=== PATIENT | female | born 1975 | race Caucasian/White ===

== ENCOUNTER 2019-04-09 17:04 | Emergency (ER) | payer OTHER, SELFPAY ==
[2019-04-09 17:10] VITALS: BP 117/83; PULSE 84; RESP 16; TEMP 36.8; O2SAT 100; BMI 22.7
--- NOTE | 2019-04-09 17:38 | DI.US.S_ITS ---
PROCEDURE: US PERIPH VENOUS LOW EXTREM RT INDICATIONS: CALF PAIN TECHNIQUE: Real-time imaging, as well as color and pulse Doppler interrogation, were performed of the lower extremity deep veins from the inguinal ligament to the popliteal fossa. COMPARISON: None. FINDINGS: The common femoral, femoral and popliteal veins are normally compressible, and free of intraluminal thrombus. Color and pulse Doppler demonstrate normal phasic intraluminal flow. There is normal augmentation response to distal compression maneuver. IMPRESSION: No DVT found. Dictated by: Basilio Rocha M.D. on 04/09/2019 at 19:10 Approved by: Basilio Rocha M.D. on 04/09/2019 at 19:11
--- NOTE | 2019-04-09 17:40 | ED.LOWEXIN ---
HPI - Extremity Injury (Lower) <SHANTELLE Nagel - Last Filed: 04/09/19 20:09> General Chief Complaint: Extremity Injury, Lower Stated Complaint: thinks she has a blood clot in her right leg Time Seen by Provider: 04/09/19 17:17 Source: patient Mode of arrival: Ambulatory Limitations: no limitations History of Present Illness HPI Narrative: 43-year-old female presents emergency department today complaining of a dull aching 2/10 right calf pain for the past 2 days. She states she recently had a long car trip and then the pain started to develop. She states it is worse when she walks, when she palpates her calf, when she flexes her foot. She has a history of varicose veins. No history of DVTs, is not currently taking any blood thinners. She denies any shortness of breath, chest pain, nausea, vomiting, diarrhea, fevers, or chills. Review of Systems <SHANTELLE Nagel - Last Filed: 04/09/19 20:09> Review of Systems Narrative: REVIEW OF SYSTEMS: GENERAL: Denies fever or chills. HENT: No head trauma, hearing loss or sore throat. EYES: No loss of vision, double vision, eye pain, or irritation. CARDIOVASCULAR: No chest pain or syncope. RESPIRATORY: No shortness of breath or cough. GASTROINTESTINAL: No nausea, vomiting, diarrhea, or constipation. GENITOURINARY: No flank pain or dysuria. MUSCULOSKELETAL: Complains of right calf pain, see HPI. No deformities. INTEGUMENTARY: No rash, lesions, or pruritus. NEURO: No numbness, tingling, memory loss, or confusion. PSYCH: No behavior or mood changes. Patient History <SHANTELLE Nagel - Last Filed: 04/09/19 20:09> Medical/Surgical History Medical History No significant medical problems (Acute) Right calf pain (Inactive) Social History Smoking Status: Never smoker Family/Social History Social History Smoking Status: Never smoker alcohol intake frequency: holidays/special occasions only Substance Use Type: does not use Exam <SHANTELLE Nagel - Last Filed: 04/09/19 20:09> Initial Vital Signs Initial Vital Signs: Vital Signs Temperature 98.3 F 04/09/19 17:10 Pulse Rate 84 04/09/19 17:10 Respiratory Rate 16 04/09/19 17:10 Blood Pressure 117/83 04/09/19 17:10 Pulse Oximetry 100 04/09/19 17:10 PHYSICAL EXAMINATION: GENERAL: Well groomed, alert, and cooperative. Answers questions promptly and appropriately. Vital signs noted. HENT: Normocephalic, atraumatic. Ear canals patent. Oral mucosa is pink and moist. EYES: Conjunctiva pink, sclera white, no periorbital swelling. CHEST: Normal to inspection and without deformities. CARDIOVASCULAR: S1 and S2 sounds normal. Regular rate and rhythm, no murmurs, clicks, or bruits. No pedal edema. RESPIRATORY: Normal respiratory rate, trachea midline, airway patent. No stridor, nasal flaring or accessory muscle use. Lungs are clear in all fisher without wheeze, rhonchi, or crackles. GASTROINTESTINAL: Bowel sounds normoactive. Abdomen is soft and non-tender. No organomegaly. MUSCULOSKELETAL: Tenderness to palpation of right calf, increased calf tenderness with dorsiflexion of right foot. No erythema or ecchymosis. Normal gait and coordination. Equal tone and mass bilaterally. EXTREMITIES: CMS intact. Moves all extremities. SKIN: Warm, dry, soft, appropriate color for ethnicity. No lesions, rashes, or wounds. NEURO: Alert and Oriented X 3. Good coordination. No ataxia, or sensory deficits, or cognitive issues. PSYCH: Appropriate affect and mood. <Louie Mcmillan DO - Last Filed: 04/10/19 08:21> Initial Vital Signs Initial Vital Signs: Vital Signs Temperature 98.3 F 04/09/19 17:10 Pulse Rate 84 04/09/19 17:10 Respiratory Rate 16 04/09/19 17:10 Blood Pressure 117/83 04/09/19 17:10 Pulse Oximetry 100 04/09/19 17:10 Course <SHANTELLE Nagel - Last Filed: 04/09/19 20:09> Orders Ordered: ED Orders 04/09/19 17:38 US periph venous low extrem rt Stat 04/09/19 18:02 Complete Blood Count AUTO DIFF Stat Comprehensive Metabolic Panel Stat Partial Thromboplastin Time Stat Prothrombin Time INR Stat Vital Signs Vital signs: Vital Signs - 8 hr 04/09/19 17:10 04/09/19 19:06 Temperature 98.3 F Pulse Rate 84 72 Respiratory Rate 16 Blood Pressure 117/83 Blood Pressure [Left Arm] 117/72 Pulse Oximetry 100 100 <Louie Mcmillan DO - Last Filed: 04/10/19 08:21> Orders Ordered: ED Orders 04/09/19 17:38 US periph venous low extrem rt Stat 04/09/19 18:02 Complete Blood Count AUTO DIFF Stat Comprehensive Metabolic Panel Stat Partial Thromboplastin Time Stat Prothrombin Time INR Stat Vital Signs Vital signs: Vital Signs - 8 hr 04/09/19 17:10 04/09/19 19:06 Temperature 98.3 F Pulse Rate 84 72 Respiratory Rate 16 Blood Pressure 117/83 Blood Pressure [Left Arm] 117/72 Pulse Oximetry 100 100 MDM - Extremity Injury (Lower) <SHANTELLE Nagel - Last Filed: 04/09/19 20:09> Medical Records Attestation: I reviewed the patient's medical records. Lab Data Attestation: I reviewed the patient's lab results. Result diagrams: 04/09/19 18:02 04/09/19 18:02 Labs: Lab Results 04/09/19 04/09/19 04/09/19 Range/Units 18:02 18:02 18:02 WBC 6.1 (4.5-11.0) X10^3/uL RBC 4.56 (4.0-5.2) X10^6/uL Hgb 13.4 (12.0-16.0) g/dL Hct 39.1 (36-46) % MCV 85.6 (80-100) fL MCH 29.4 (26-34) PG MCHC 34.4 (30-36) % RDW 13.4 (11.6-14.8) % Plt Count 195 (150-400) X10^3/uL Neut % (Auto) 60.5 (50-75) % Lymph % (Auto) 25.4 (25-40) % [place] % (Auto) 9.6 (3-14) % Eos % (Auto) 3.8 (2-4) % Baso % (Auto) 0.7 (0-2) % Neut # (Auto) 3700 (4503-0348) /uL Lymph # (Auto) 1500 (4667-9836) /uL [place] # (Auto) 600 (0-900) /uL Eos # (Auto) 200 (0-450) /uL Baso # (Auto) 0 (0-100) /uL PT 10.7 (10.1-12.7) SECONDS INR 0.9 (0.9-1.3) APTT 31 (26.4-36.2) SECONDS Sodium 138 (137-145) mmol/L Potassium 3.5 (3.4-5.1) mmol/L Chloride 104 (98-107) mmol/L Carbon Dioxide 29 (22-32) mmol/L BUN 12 (7-17) mg/dL Creatinine 0.90 (0.52-1.04) mg/dL Estimated GFR > 60.0 (>60) mL/min BUN/Creatinine Ratio 13.3 (6-22) Glucose 94 (70-100) mg/dL Calcium 9.3 (8.4-10.2) mg/dL Total Bilirubin 0.4 (0.2-1.3) mg/dL AST 21 (14-36) IU/L ALT 14 (9-52) IU/L Alkaline Phosphatase 48 (38-126) U/L Total Protein 7.3 (6.3-8.2) g/dL Albumin 4.2 (3.5-5.0) g/dL Globulin 3.1 (1.7-4.1) g/dL Albumin/Globulin Ratio 1.4 (1.0-2.8) Imaging Data Right LE: Radiologist's impression: [place] [address] Ultrasound Report Signed Patient: Citlalli Cadet [facility]#: [id number] : 1975Acct:[id number] Age/Sex: 43 / FDate of Service: 04/09/19 Loc: ED Accession Number: [id number] Procedure: US periph venous low extrem rt Ordering Provider: Galina Chen PROCEDURE: US PERIPH VENOUS LOW EXTREM RT INDICATIONS: CALF PAIN TECHNIQUE: Real-time imaging, as well as color and pulse Doppler interrogation, were performed of the lower extremity deep veins from the inguinal ligament to the popliteal fossa. COMPARISON: None. FINDINGS: The common femoral, femoral and popliteal veins are normally compressible, and free of intraluminal thrombus. Color and pulse Doppler demonstrate normal phasic intraluminal flow. There is normal augmentation response to distal compression maneuver. IMPRESSION: No DVT found. Dictated by: Basilio Rocha M.D. on 04/09/2019 at 19:10 Approved by: Basilio Rocha M.D. on 04/09/2019 at 19:11 MDM Narrative Medical decision making narrative: Differential includes calf strain, muscle spasm, and DVT. Less concern for DVT due to negative ultrasound, was concerned for clotting disorder due to laboratories also were within normal limits. Patient was instructed to follow up with her primary care physician is symptoms present. Strict return precautions were given. <Louie Mcmillan DO - Last Filed: 04/10/19 08:21> Lab Data Labs: Lab Results 04/09/19 04/09/19 04/09/19 Range/Units 18:02 18:02 18:02 WBC 6.1 (4.5-11.0) X10^3/uL RBC 4.56 (4.0-5.2) X10^6/uL Hgb 13.4 (12.0-16.0) g/dL Hct 39.1 (36-46) % MCV 85.6 (80-100) fL MCH 29.4 (26-34) PG MCHC 34.4 (30-36) % RDW 13.4 (11.6-14.8) % Plt Count 195 (150-400) X10^3/uL Neut % (Auto) 60.5 (50-75) % Lymph % (Auto) 25.4 (25-40) % [place] % (Auto) 9.6 (3-14) % Eos % (Auto) 3.8 (2-4) % Baso % (Auto) 0.7 (0-2) % Neut # (Auto) 3700 (4924-2643) /uL Lymph # (Auto) 1500 (4944-8662) /uL [place] # (Auto) 600 (0-900) /uL Eos # (Auto) 200 (0-450) /uL Baso # (Auto) 0 (0-100) /uL PT 10.7 (10.1-12.7) SECONDS INR 0.9 (0.9-1.3) APTT 31 (26.4-36.2) SECONDS Sodium 138 (137-145) mmol/L Potassium 3.5 (3.4-5.1) mmol/L Chloride 104 (98-107) mmol/L Carbon Dioxide 29 (22-32) mmol/L BUN 12 (7-17) mg/dL Creatinine 0.90 (0.52-1.04) mg/dL Estimated GFR > 60.0 (>60) mL/min BUN/Creatinine Ratio 13.3 (6-22) Glucose 94 (70-100) mg/dL Calcium 9.3 (8.4-10.2) mg/dL Total Bilirubin 0.4 (0.2-1.3) mg/dL AST 21 (14-36) IU/L ALT 14 (9-52) IU/L Alkaline Phosphatase 48 (38-126) U/L Total Protein 7.3 (6.3-8.2) g/dL Albumin 4.2 (3.5-5.0) g/dL Globulin 3.1 (1.7-4.1) g/dL Albumin/Globulin Ratio 1.4 (1.0-2.8) Discharge Plan Departure Patient Disposition: Home Clinical Impression: Right calf pain Discharge Date/Time: 04/09/19 19:37 Instructions: Calf Muscle Strain Activity Restrictions/Additional Instructions: Thank you for entrusting me with your care today. As discussed, your ultrasound and labs were negative for any concerning findings such as a blood clot. Please follow up with your primary care provider in the next few weeks if your symptoms persist. Return to the emergency department if you develop chest pain, shortness of breath, syncope, slurred speech, or other concerning symptoms. <Louie Mcmillan DO - Last Filed: 04/10/19 08:21> Sign Out Provider Sign Out Attestation: I was available for consultation during this patient's emergency department visit. This chart is signed by myself for administrative purposes only. I did not have direct contact with this patient during this visit. They were seen independently by the APC.
[2019-04-09 18:46] LABS: Add Manual Diff / Slide Review NO; Basophils Absolute Auto 0 /uL (0-100); Basophils Percent Auto 0.7 % (0-2); Eosinophils Absolute Auto 200 /uL (0-450); Eosinophils Percent Auto 3.8 % (2-4); Hematocrit 39.1 % (36-46); Hemoglobin 13.4 g/dL (12.0-16.0); Lymphocytes Absolute Auto 1500 /uL (1100-4500); Lymphocytes Percent Auto 25.4 % (25-40); Mean Corpuscular HGB Conc 34.4 % (30-36); Mean Corpuscular Hemoglobin 29.4 PG (26-34); Mean Corpuscular Volume 85.6 fL (80-100); Monocytes Absolute Auto 600 /uL (0-900); Monocytes Percent Auto 9.6 % (3-14); Neutrophils Absolute Auto 3700 /uL (1500-7000); Neutrophils Percent Auto 60.5 % (50-75); Platelet Count 195 X10^3/uL (150-400); Red Blood Cell Count 4.56 X10^6/uL (4.0-5.2); Red Cell Distribution Width 13.4 % (11.6-14.8); White Blood Cell Count 6.1 X10^3/uL (4.5-11.0)
[2019-04-09 18:54] LABS: INR 0.9 (0.9-1.3); Prothrombin Time 10.7 SECONDS (10.1-12.7)
[2019-04-09 18:57] LABS: PTT Partial Thromboplastin Tim 31 SECONDS (26.4-36.2)
[2019-04-09 19:00] LABS: Alanine Aminotransferase 14 IU/L (9-52); Albumin 4.2 g/dL (3.5-5.0); Albumin Globulin Ratio 1.4 (1.0-2.8); Alkaline Phosphatase 48 U/L (38-126); Aspartate Aminotransferase 21 IU/L (14-36); BUN Creatinine Ratio 13.3 (6-22); Bilirubin Total 0.4 mg/dL (0.2-1.3); Blood Urea Nitrogen 12 mg/dL (7-17); Calcium 9.3 mg/dL (8.4-10.2); Carbon Dioxide 29 mmol/L (22-32); Chloride 104 mmol/L (98-107); Estimated Glomerular Filt Rate > 60.0 mL/min (>60); Globulin 3.1 g/dL (1.7-4.1); Glucose 94 mg/dL (70-100); HEMOLYSIS < 15 (0-50); Potassium 3.5 mmol/L (3.4-5.1); Sodium 138 mmol/L (137-145); Total Protein 7.3 g/dL (6.3-8.2)
[2019-04-09 19:06] VITALS: BP 117/72; PULSE 72; O2SAT 100
== END 2019-04-09 19:37 | disposition home or self-care (01) ==
PROVIDERS: Emergency Provider Nurse Practitioner
DX: M79.661 Pain in right lower leg (principal)
CPT/HCPCS: 36415; 80053; 85025; 85610; 85730; 93971; 99282; 99284